=== PATIENT | female | born 1945 | race Caucasian/White ===

== ENCOUNTER → 2019-12-19 15:58 | Outpatient (BNVA) | payer MEDICARE, OTHER, SELFPAY | PROVIDERS: Family Provider Family Medicine; PCP Family Medicine; Visit Provider Nurse Practitioner Family | DX: R60.0 Localized edema (principal) | CPT/HCPCS: 73562 ==

== ENCOUNTER 2019-12-20 14:23 | Outpatient (CLI) | payer MEDICARE, OTHER, SELFPAY ==
--- NOTE | 2019-12-20 14:15 | USCV_ITS ---
Eleanor Hamilton Age: 74 Gender: F : 1945 Exam Date: 12/20/2019 15:09 Ordering Phys: Joelle Gonzalez NP Technologist: Lilian Pillai Exam Location: [facility] [place] Indication: SUDDEN ONSET PAIN AND SORENESS IN RT LEG HISTORY: 2 week sudden onset of pain and soreness in rt leg PROCEDURES: Venous duplex imaging was performed in only the right lower extremity. The following venous structures were evaluated: common femoral vein, profunda vein, proximal portion of the greater saphenous vein, superficial femoral vein, and the popliteal vein. In addition, the posterior tibial and peroneal trunk were evaluated. Serial compression, augmentation maneuvers, and spectral Doppler flow evaluation were performed. FINDINGS: Normal 2-D Doppler and augmentation and compressibility throughout the lower extremity venous structures. Additional imaging through the proximal calf veins also reveals no thrombus. Limited evaluation of the greater saphenous vein is patent with no thrombus. Complex cystic mass with low level echos and no vascularity measuring 5.7 x 1.2 cm in the right popliteal fossa. CONCLUSIONS No DVT right lower extremity. Right popliteal fossa Meredith's cyst. Dr. Marifer Hampton DO (Electronically Signed) Final Date: 23 December 2019 14:41 S
== END 2019-12-20 14:24 | disposition home or self-care (01) ==
PROVIDERS: Family Provider Family Medicine; PCP Internal Medicine; Visit Provider Nurse Practitioner Family
DX: R60.0 Localized edema; M25.561 Pain in right knee; M71.21 Synovial cyst of popliteal space [Baker], right knee
CPT/HCPCS: 93971

== ENCOUNTER 2020-04-24 06:00 | Outpatient (RCR) | payer MEDICARE, OTHER, SELFPAY | END 2020-05-18 23:59 | disposition home or self-care (01) | LOC: GPT 06:00 | PROVIDERS: PCP Internal Medicine; Referring Provider Physician Assistant; Visit Provider Physician Assistant | DX: M70.61 Trochanteric bursitis, right hip (principal); M70.62 Trochanteric bursitis, left hip | CPT/HCPCS: 97032; 97110; 97161; 97530; 97760 ==

== ENCOUNTER → 2023-06-12 15:32 | Outpatient (BNVA) | payer MEDICARE, SELFPAY | PROVIDERS: PCP Nurse Practitioner Family; Visit Provider Dermatology | DX: L72.0 Epidermal cyst (principal); L73.8 Other specified follicular disorders; L57.8 Other skin changes due to chronic exposure to nonionizing radiation; L81.4 Other melanin hyperpigmentation; Z08 Encounter for follow-up examination after completed treatment for malignant neoplasm; Z85.828 Personal history of other malignant neoplasm of skin; L82.0 Inflamed seborrheic keratosis; L57.0 Actinic keratosis | CPT/HCPCS: 11200; 17000; 17110; 99213 ==

== ENCOUNTER → 2023-06-21 08:20 | Outpatient (BNVA) | payer MEDICARE, SELFPAY | PROVIDERS: PCP Nurse Practitioner Family; Visit Provider Dermatology | DX: D48.5 Neoplasm of uncertain behavior of skin (principal); L82.0 Inflamed seborrheic keratosis; R20.8 Other disturbances of skin sensation; R23.8 Other skin changes; L53.8 Other specified erythematous conditions | CPT/HCPCS: 11423; 12032; 17110 ==

== ENCOUNTER 2024-03-11 12:41 | Outpatient (CLI) | payer MEDICARE, SELFPAY ==
--- NOTE | 2024-03-11 12:44 | US_ITS ---
WS: [id number] Exam: US renal BI* [id number] Date/Time of Exam: 03/11/2024 12:51 PM Reason For Exam: STAGE 3B CHRONIC KIDNEY DZ The kidneys are of normal size, shape and location. No sign of solid or cystic renal mass. No renal o bstruction. The RIGHT kidney measures 9.2 x 5.5 x 5.2 cm. The LEFT kidney measures 9 x 4.1 x 4.4 cm. The renal cortex measured 1 cm in greatest thickness for both kidneys. The urinary bladder is smooth in contour. US/US renal BI* [id number] IMPRESSION: 1. Unremarkable bilateral renal ultrasound.
== END 2024-03-11 12:42 | disposition home or self-care (01) ==
PROVIDERS: PCP Nurse Practitioner Family; Visit Provider Internal Medicine
DX: L57.8 Other skin changes due to chronic exposure to nonionizing radiation (principal); Z85.828 Personal history of other malignant neoplasm of skin
CPT/HCPCS: 10060; 76770; 99213

== ENCOUNTER → 2024-03-18 11:06 | Outpatient (BNVA) | payer MEDICARE, SELFPAY | PROVIDERS: PCP Nurse Practitioner Family; Visit Provider Nurse Practitioner Family | DX: Z85.828 Personal history of other malignant neoplasm of skin (principal); L72.0 Epidermal cyst; L82.0 Inflamed seborrheic keratosis; L57.8 Other skin changes due to chronic exposure to nonionizing radiation | CPT/HCPCS: 17110; 99213 ==

== ENCOUNTER → 2024-06-12 12:52 | Outpatient (BNVA) | payer MEDICARE, SELFPAY | PROVIDERS: PCP Nurse Practitioner Family; Visit Provider Nurse Practitioner Family | DX: L82.0 Inflamed seborrheic keratosis (principal); L57.8 Other skin changes due to chronic exposure to nonionizing radiation; Z85.828 Personal history of other malignant neoplasm of skin | CPT/HCPCS: 17110; 99213 ==